=== PATIENT | female | born 1990 | race Caucasian/White ===

== ENCOUNTER 2019-05-07 13:55 | Outpatient (REF) | payer BC, SELFPAY ==
--- NOTE | 2019-05-07 13:30 | PAPFT_PTH ---
PATIENT: Aditya Velez LOC: [facility] U#:[id number] AGE/SX: 28/F ROOM: RE05/07/[address]: Sue Dorsey : 1990 BED: DIS: 05/07/2019 SPEC #: [id number] RECD: 05/10/19 13:01 STATUS: GABBY RETammy #: [id number] SCOTT: 05/07/19 13:[address]: Sue Dorsey DEPT: [facility] Cytology RECD BY: Mili Duncan ENTERED: 05/10/19 13:01 SP TYPE: PAPFT OTHR DR: Basim Garcia Tissues: 1 - CX/ENDOCX FOR PAP SMEARS Procedures: PAP THIN PREP/[facility] Screening HPV DNA PROBE Comments: [id number] (CHLAMYDIA/GC)
[2019-05-10 10:52] LABS: HIV-1/2 Ag & Ab Screen Negative (NEGAT)
[2019-05-10 12:03] LABS: Syphilis Serology (RPR) Negative (Negative)
[2019-05-11 15:06] LABS: Chlamydia Result Negative; GC Result Negative; Specimen Description SEE COMMENTS
== END 2019-05-07 14:15 ==
LOC: NCHCN 13:55
PROVIDERS: PCP Specialist/Technologist Athletic Trainer; Visit Provider Nurse Practitioner Family
DX: Z00.00 Encounter for general adult medical examination without abnormal findings (principal); F32.9 Major depressive disorder, single episode, unspecified; R87.89 Other abnormal findings in specimens from female genital organs; Z11.3 Encounter for screening for infections with a predominantly sexual mode of transmission; Z11.4 Encounter for screening for human immunodeficiency virus [HIV]; Z12.4 Encounter for screening for malignant neoplasm of cervix; Z11.51 Encounter for screening for human papillomavirus (HPV); Z01.419 Encounter for gynecological examination (general) (routine) without abnormal findings
CPT/HCPCS: 87389; 87491; 87591; 88142; 86592; 87624

== ENCOUNTER 2019-11-25 11:51 | Outpatient (REF) | payer BC, SELFPAY | END 2019-11-25 12:11 | LOC: NCHCN 11:51 | PROVIDERS: PCP Specialist/Technologist Athletic Trainer; Visit Provider Nurse Practitioner Family | DX: N76.0 Acute vaginitis (principal) | CPT/HCPCS: 87480; 87510; 87660 ==

== ENCOUNTER 2020-02-23 14:54 | Outpatient (REF) | payer BC, SELFPAY ==
[2020-02-23 20:15] LABS: ALT 20 U/L (14-59); AST 17 U/L (15-37); Albumin 3.9 g/dL (3.4-5.0); Alkaline Phosphatase 55 U/L (46-116); Anion Gap 9.8 mmol/L (3-11); BUN 13 mg/dL (7-18); Bilirubin, Total 0.6 mg/dL (0.2-1.0); CO2 26.2 mmol/L (21.0-32.0); CREATININE 1.25 mg/dL (0.55-1.02); Calcium 8.9 mg/dL (8.5-10.1); Chloride 105 mmol/L (98-107); Estimated GFR 51.03 (mL/min/1.73m2); Glucose 75 mg/dL (74-106); Potassium 4.5 mmol/L (3.5-5.1); Sodium 141 mmol/L (136-145); Total Protein 7.1 g/dL (6.4-8.2)
[2020-02-23 20:16] LABS: Abs Immature Grans 0.01 k/cumm (0.0-0.09); Absolute Basophil Count 0.04 k/cumm (0.0-0.2); Absolute Eosinophil Count 0.07 k/cumm (0.0-0.7); Absolute Lymphocyte Count 2.28 k/cumm (1.2-3.4); Absolute Monocyte Count 0.71 k/cumm (0.11-0.7); Absolute Neutrophil Count 5.38 k/cumm (1.2-6.7); Basophils % 0.5; Eosinophils % 0.8; HCT 39.1 % (36.0-46.0); HGB 13.6 g/dL (12.0-15.5); Immature Grans % 0.1 %; Lymphocytes % 26.9; Mean Corp. HGB Concentration 34.8 g/dL (32.0-36.0); Mean Corpuscular Hemoglobin 31.3 pg (27.0-33.0); Mean Corpuscular Volume 90.1 fL (80-95); Mean Platelet Volume 10.2 fL (8.0-11.0); Monocytes % 8.4; Neutrophils % 63.3; Platelet Count 277 x1000/uL (130-400); RBC 4.34 m/cumm (4.00-5.20); RBC Distribution Width 11.4 % (11.7-14.6); White Blood Cell Count 8.49 k/cumm (4.4-10.8)
[2020-02-23 21:42] LABS: ESR 10 mm/hr (0-20)
== END 2020-02-23 15:14 ==
LOC: NCHCN 14:54
PROVIDERS: PCP Specialist/Technologist Athletic Trainer; Visit Provider Nurse Practitioner Family
DX: Z00.00 Encounter for general adult medical examination without abnormal findings (principal); K62.5 Hemorrhage of anus and rectum; R10.31 Right lower quadrant pain
CPT/HCPCS: 80053; 85652; 85025

== ENCOUNTER 2020-02-28 01:46 | Outpatient (CLI) | payer BC, SELFPAY ==
--- NOTE | 2020-02-28 | DI.US_ITS ---
EXAM: US PELVIS US PELVISty CLINICAL HISTORY: RENAL IMPAIRMENT, N28.9, RLQ PAIN, R10.31, ABD PAIN. TECHNIQUE: Transabdominal imaging was performed using standard protocol. COMPARISON: No exams were available for comparison FINDINGS: KIDNEYS: Kidneys are symmetric in size. No evidence of renal calculi. No evidence of hydronephrosis. No renal mass or cyst identified. UTERUS: Anteverted. The uterus measures 8.5 x 4.5 x 6.2 cm. Endometrium: 10 millimeters Myometrium: Unremarkable. Cervix: Unremarkable. OVARIES: Right: Cyst or mass: None. Left: Cyst or mass: None. The visualization of the left ovary was somewhat limited due to adjacent b owel. DOPPLER: Color: Symmetric and uniform flow to both ovaries. No hyperemia. CUL-DE-SAC: Free fluid: Small amount of free fluid, likely physiologic. IMPRESSION: 1. Normal-appearing uterus with endometrial stripe within normal limits. 2. Unremarkable bilateral ovaries. DATA REPOSITORY:
--- NOTE | 2020-02-28 | DI.US_ITS ---
TECHNIQUE: Ultrasound abdomen performed using standard protocol. COMPARISON: No exams were available for comparison FINDINGS: LIVER: Normal size and echogenicity. No focal liver lesions are seen.. GALLBLADDER: No evidence of cholelithiasis. No evidence of wall thickening. No pericholecystic fluid identified. KIDNEYS: Kidneys are symmetric in size and show normal parenchymal echogenicity. No evidence of cecilio l calculi. No evidence of hydronephrosis. No renal mass or cyst identified. The prevoid bladder volu me measured 150 cc. Both ureteral jets were visualized. Postvoid residual is 0 cc. No bladder mass is seen. BILIARY SYSTEM: No intrahepatic or extrahepatic biliary ductal dilation. VELASCO'S SIGN: Negative. PANCREAS: Normal where visualized. SPLEEN: Not enlarged. ABDOMINAL AORTA AND IVC: Visualized portions normal caliber. ASCITES: None seen. IMPRESSION: Normal sonographic appearance of the upper abdomen. DATA REPOSITORY:
== END 2020-02-28 02:06 ==
PROVIDERS: PCP Nurse Practitioner Family; Visit Provider Nurse Practitioner Family
DX: R10.31 Right lower quadrant pain (principal); N28.89 Other specified disorders of kidney and ureter
CPT/HCPCS: 76770; 76700; 76856

== ENCOUNTER 2021-02-13 15:04 | Outpatient (REF) | payer BC, SELFPAY ==
[2021-02-13 21:18] LABS: Abs Immature Grans 0.01 10^3/uL (0.0-0.06); Absolute Basophil Count 0.05 10^3/uL (0.0-0.2); Absolute Eosinophil Count 0.07 10^3/uL (0.0-0.7); Absolute Lymphocyte Count 2.09 10^3/uL (1.2-3.4); Absolute Neutrophil Count 4.66 10^3/uL (1.2-6.7); Basophils % 0.7; Eosinophils % 0.9; HCT 41.7 % (36.0-46.0); HGB 14.7 g/dL (11.2-15.7); Immature Grans % 0.1; Lymphocytes % 27.9; MCH 31.3 pg (27.0-33.0); MCHC 35.3 % (32.0-36.0); MCV 88.7 fL (80-95); MPV 10.9 fL (8.0-11.0); Neutrophils % 62.4; Nucleated RBC 0 %; Platelet Count 242 10^3/uL (130-400); RDW 11.4 % (11.7-14.6); RDW-SD 37.1 fL; WBC 7.48 10^3/uL (4.4-10.8)
[2021-02-13 21:32] LABS: ESR 7 mm//hr (0-20)
[2021-02-13 21:35] LABS: Iron 92 ug/dL (50-170); Total Iron Binding Capacity 301 ug/dL (250-450); Transferrin Sat 31 % (15-50)
[2021-02-13 21:49] LABS: Anion Gap 7.6 mmol/L (3-11); BUN 12 mg/dL (7-18); CO2 29.4 mmol/L (21.0-32.0); CREATININE 1.2 mg/dL (0.55-1.02); Calcium 8.9 mg/dL (8.5-10.1); Chloride 104 mmol/L (98-107); Estimated GFR 53.11 (mL/min/1.73m2); Glucose 75 mg/dL (74-106); Magnesium 2.1 mg/dL (1.8-2.4); Sodium 141 mmol/L (136-145); TSH (W/Ref FT4) 0.47 uIU/mL (0.36-3.74); Vitamin B12 456 pg/mL (193-986)
== END 2021-02-13 15:05 | disposition home or self-care (01) ==
LOC: NCHCN 15:04
PROVIDERS: PCP Nurse Practitioner Family; Visit Provider Nurse Practitioner Family
DX: R00.2 Palpitations (principal); R20.2 Paresthesia of skin; R42 Dizziness and giddiness; R51.9 Headache, unspecified; H53.8 Other visual disturbances
CPT/HCPCS: 80048; 85652; 82607; 83540; 83550; 83735; 84443; 85025

== ENCOUNTER 2021-05-17 04:34 | Outpatient (CLI) | payer BC, SELFPAY ==
--- NOTE | 2021-05-17 16:19 | PDOC.EEG_ITS ---
Neurology EEG EEG: [facility] Department of Neurology EEG REPORT Date of Recordin05/17/21 Interpreting Physician: Dr. Kavitha Mendoza PCP/Referring Provider: Loreta Dorsey NP Reason for study: Aditya is a 30 year-old woman with recurrent brief spells of vision loss and vertigo followed by more prolonged fatigue, concerning for seizure. Current Medications: Home Medications Medication Instructions Recorded Confirmed Type Mulit For Her [place] 3 PO DAILY 04/17/18 05/07/21 History Proair Hfa 108 1 - 2 puff INHALATION 4-6hrs 04/17/18 05/07/21 History fluticasone propionate 50 mcg NS DAILY spray 04/17/18 05/07/21 History loratadine 10 mg tablet 10 mg PO DAILY 05/07/21 05/07/21 History montelukast 10 mg tablet 10 mg PO DAILY 05/07/21 05/07/21 History METHODS: A 21 channel digitized electroencephalogram was performed in the [facility]. The 10/20 international system of electrode placement was used and bipolar and referential electrode montages were recorded. In addition to EEG the patient was monitored for EKG and lateral/vertical eye movements. Activation procedures of photic stimulation and hyperventilation were performed if applicable. Video was used during activation procedures and during events where applicable. The duration of the recording was 30 minutes. DESCRIPTION OF EEG: The patient was noted to be awake and drowsy during the recording. During maximal wakefulness a 9-Hz posterior background rhythm was present which was well-modulated, symmetrical, reactive to eye opening, and of moderate voltage. With eye opening the background activity changed to a low voltage mixture of alpha, beta, and occasional theta range frequencies. Faster frequencies were present in the bilateral anterior head regions. There was a normal anterior- posterior voltage gradient. During drowsiness, there was attenuation of the posterior dominant background rhythm and vertex waves. No stage II sleep was recorded. Activating Procedures: Photic stimulation was performed which produced no posterior driving. Hyperventilation was performed with moderate effort and produced no physiological slowing of the background. EKG: EKG revealed normal sinus rhythm. INTERPRETATION: This EEG is normal during the awake and drowsy states as well as during photic stimulation and hyperventilation. PRIOR EEG: none CLINICAL CORRELATION: No focal regions of cerebral dysfunction or epileptiform activity was present. Epilepsy remains a clinical diagnosis and a normal EEG does not rule out epilepsy. Clinical correlation is advised. Kavitha Mendoza MD
== END 2021-05-17 04:35 | disposition home or self-care (01) ==
LOC: RT 04:34
PROVIDERS: PCP Nurse Practitioner Family; Visit Provider Psychiatry & Neurology Neurology
DX: R41.89 Other symptoms and signs involving cognitive functions and awareness (principal); R42 Dizziness and giddiness; R53.83 Other fatigue; H53.19 Other subjective visual disturbances
CPT/HCPCS: 95816

== ENCOUNTER 2022-09-18 10:24 | Outpatient (REF) | payer BC, SELFPAY ==
--- NOTE | 2022-09-18 09:30 | PAPFT_PTH ---
PATIENT: Aditya Velez LOC: [facility] U#:[id number] AGE/SX: 31/F ROOM: RE09/18/[address]: Ivelisse Thompson MD : 1990 BED: DIS: 09/18/2022 SPEC #: [id number] RECD: 09/18/22 12:48 STATUS: GABBY RETammy #: [id number] SCOTT: 09/18/22 09:[address]: Ivelsise Thompson [facility] Cytology RECD BY: Mili Duncan ENTERED: 09/18/22 12:48 SP TYPE: PAPFT OTHR DR: Sue Dorsey Tissues: 1 - CX/ENDOCX FOR PAP SMEARS Procedures: PAP THIN PREP/[facility] Screening HPV DNA PROBE Comments: [id number] (CHLAMYDIA/GC) (HPV 16 & 18/45)
[2022-09-19 14:47] LABS: Chlamydia Result Negative (Negative); GC Result Negative (Negative)
== END 2022-09-18 10:25 | disposition home or self-care (01) ==
LOC: LBN 10:24
PROVIDERS: PCP Nurse Practitioner Family; Visit Provider Obstetrics & Gynecology
DX: Z12.4 Encounter for screening for malignant neoplasm of cervix (principal); Z11.3 Encounter for screening for infections with a predominantly sexual mode of transmission; Z11.51 Encounter for screening for human papillomavirus (HPV); R87.810 Cervical high risk human papillomavirus (HPV) DNA test positive
CPT/HCPCS: 87491; 87591; 88142; 87624

== ENCOUNTER 2022-10-16 12:47 | Outpatient (REF) | payer BC, SELFPAY ==
--- NOTE | 2022-10-16 10:00 | CER_PTH ---
PATIENT: Aditya Velez LOC: [facility] U#:[id number] AGE/SX: 31/F ROOM: RE10/16/[address]: Ivelisse Thompson MD : 1990 BED: DIS: 10/16/2022 SPEC #: [id number] RECD: 10/16/22 12:50 STATUS: GABBY REQ #: [id number] SCOTT: 10/16/22 10:[address]: Ivelisse Thompson DEPT: Surgical Specimen RECD BY: Mili Duncan ENTERED: 10/16/22 12:51 SP TYPE: CER OTHR DR: Sue Dorsey Tissues: 1 - CERVICAL BIOPSY Procedures: GROSS AND MICRO LEVEL 4 Comments: [id number]
== END 2022-10-16 12:48 | disposition home or self-care (01) ==
LOC: LBN 12:47
PROVIDERS: PCP Nurse Practitioner Family; Visit Provider Obstetrics & Gynecology
DX: N87.0 Mild cervical dysplasia (principal)
CPT/HCPCS: 88305

== ENCOUNTER 2023-01-13 14:31 | Outpatient (REF) | payer BC, SELFPAY ==
[2023-01-13 20:53] LABS: Abs Immature Grans 0.01 10^3/uL (0.0-0.06); Absolute Basophil Count 0.06 10^3/uL (0.0-0.2); Absolute Eosinophil Count 0.07 10^3/uL (0.0-0.7); Absolute Lymphocyte Count 1.92 10^3/uL (1.2-3.4); Absolute Monocyte Count 0.48 10^3/uL (0.1-0.8); Absolute Neutrophil Count 4.77 10^3/uL (1.2-6.7); Basophils % 0.8; HCT 40.5 % (36.0-46.0); HGB 13.9 g/dL (11.2-15.7); Immature Grans % 0.1; Lymphocytes % 26.3; MCH 30.5 pg (27.0-33.0); MCHC 34.3 % (32.0-36.0); MCV 89 fL (80-95); Monocytes % 6.6; Neutrophils % 65.2; Platelet Count 255 10^3/uL (130-400); RBC 4.55 10^6/uL (3.93-5.22); RDW 11.2 % (11.7-14.6); RDW-SD 36.6 fL; WBC 7.31 10^3/uL (4.4-10.8)
[2023-01-13 20:58] LABS: ESR 3 mm/hr (0-20)
[2023-01-13 21:03] LABS: ALT 34 U/L (14-59); AST 20 U/L (15-37); Alkaline Phosphatase 63 U/L (46-116); Anion Gap 7.8 mmol/L (3-11); BUN 10 mg/dL (7-18); Bilirubin, Total 0.4 mg/dL (0.2-1.0); CO2 28.2 mmol/L (21.0-32.0); CREATININE 0.8 mg/dL (0.55-1.02); Chloride 106 mmol/L (98-107); Estimated GFR 100.96 (mL/min/1.73m2); Glucose 78 mg/dL (74-106); Potassium 3.9 mmol/L (3.5-5.1); Sodium 142 mmol/L (136-145)
[2023-01-14 17:52] LABS: Rheumatoid Factor 29.7 IU/mL (<12.0)
[2023-01-15 10:11] LABS: Lyme Ab w Rflx to Lyme Confirm Negative (Negative)
[2023-01-16 14:25] LABS: Anaplasma phagocytophilum Negative (Negative); B. miyamotoi PCR Negative (Negative); Babesia divergens/MO-1 Negative (Negative); Babesia duncani Negative (Negative); Babesia microti Negative (Negative); Ehrlichia chaffeensis Negative (Negative); Ehrlichia ewingii/canis Negative (Negative); Ehrlichia muris eauclairensis Negative (Negative)
== END 2023-01-13 14:32 | disposition home or self-care (01) ==
LOC: NCHCN 14:31
PROVIDERS: PCP Nurse Practitioner Family; Visit Provider Family Medicine
DX: R53.83 Other fatigue (principal); M25.50 Pain in unspecified joint
CPT/HCPCS: 80053; 85652; 87798; 85025; 86431; 86618

== ENCOUNTER 2024-01-19 14:17 | Outpatient (REF) | payer BC, SELFPAY ==
[2024-01-20 09:51] LABS: HIV-1/2 Ag & Ab Screen Negative (Negative)
[2024-01-20 10:10] LABS: Hepatitis C Ab w Rflx HCV PCR Negative (Negative)
[2024-01-20 11:25] LABS: Syphilis Serology (RPR) Negative (Negative)
== END 2024-01-19 14:18 | disposition home or self-care (01) ==
LOC: NCHCN 14:17
PROVIDERS: PCP Nurse Practitioner Family; Visit Provider Nurse Practitioner Family
DX: Z00.00 Encounter for general adult medical examination without abnormal findings (principal); Z11.3 Encounter for screening for infections with a predominantly sexual mode of transmission; Z11.4 Encounter for screening for human immunodeficiency virus [HIV]; Z11.59 Encounter for screening for other viral diseases
CPT/HCPCS: 86803; 87389; 86592

== ENCOUNTER 2024-01-29 15:31 | Outpatient (REF) | payer BC, SELFPAY ==
--- NOTE | 2024-01-29 15:15 | PAPFT_PTH ---
PATIENT: Aditya Velez LOC: [facility] U#:[id number] AGE/SX: 33/F ROOM: RE01/29/[address]: Ivelisse Thompson MD : 1990 BED: DIS: 01/29/2024 SPEC #: [id number] RECD: 01/29/24 17:51 STATUS: GABBY REQ #: [id number] SCOTT: 01/29/24 15:[address]: Ivelisse Thompson DEPT: [facility] Cytology RECD BY: Mili Duncan ENTERED: 01/29/24 17:51 SP TYPE: PAPFT PALMER DR: Sue Dosrey Tissues: 1 - CX/ENDOCX FOR PAP SMEARS Procedures: PAP THIN PREP/[facility] Screening HPV DNA PROBE Comments: [id number] (CHLAMYDIA/GC)
[2024-01-30 13:15] LABS: Chlamydia Result Negative (Negative); GC Result Negative (Negative)
== END 2024-01-29 15:32 | disposition home or self-care (01) ==
LOC: LBN 15:31
PROVIDERS: PCP Nurse Practitioner Family; Visit Provider Obstetrics & Gynecology
DX: Z01.419 Encounter for gynecological examination (general) (routine) without abnormal findings (principal)
CPT/HCPCS: 87491; 87591; 88142; 87624

== ENCOUNTER 2025-02-01 18:02 | Outpatient (REF) | payer BC, SELFPAY ==
--- NOTE | 2025-02-01 16:15 | PAPFT_PTH ---
PATIENT: Aditya Velez LOC: [facility] U#:[id number] AGE/SX: 34/F ROOM: RE02/01/[address]: Ivelisse Thompson MD : 1990 BED: DIS: 02/01/2025 SPEC #: [id number] RECD: 02/01/25 18:13 STATUS: TDSherrie REQ #: [id number] SCOTT: 02/01/25 16:[address]: Ivelisse Thomspon DEPT: [facility] Cytology RECD BY: Mili Duncan ENTERED: 02/01/25 18:13 SP TYPE: PAPFT PALMER DR: Sue Dorsey Tissues: 1 - CX/ENDOCX FOR PAP SMEARS Procedures: PAP THIN PREP/[facility] Screening HPV DNA PROBE Comments: [id number] (HPV 16 & 18/45)
== END 2025-02-01 18:03 | disposition home or self-care (01) ==
LOC: LBN 18:02
PROVIDERS: PCP Nurse Practitioner Family; Visit Provider Obstetrics & Gynecology
DX: Z12.4 Encounter for screening for malignant neoplasm of cervix (principal); Z01.419 Encounter for gynecological examination (general) (routine) without abnormal findings
CPT/HCPCS: 88142; 87624

== ENCOUNTER 2025-03-15 13:10 | Outpatient (REF) | payer BC, SELFPAY ==
[2025-03-15 16:05] LABS: Iron 114 ug/dL (50-170); Total Iron Binding Capacity 356 ug/dL (250-450); Transferrin Sat 32 % (15-50)
[2025-03-15 16:17] LABS: ALT 43 U/L (14-59); AST 77 U/L (15-37); Albumin 4.1 g/dL (3.4-5.0); Alkaline Phosphatase 62 U/L (46-116); Anion Gap 9.7 mmol/L (3-11); BUN 9 mg/dL (7-18); Bilirubin, Total 0.8 mg/dL (0.2-1.0); CO2 27.3 mmol/L (21.0-32.0); CREATININE 0.7 mg/dL (0.55-1.02); Calcium 9.1 mg/dL (8.5-10.1); Chloride 104 mmol/L (98-107); Estimated GFR 117.04 (mL/min/1.73m2); Ferritin 22 ng/mL (8-252); Glucose 75 mg/dL (74-106); Potassium 4.2 mmol/L (3.5-5.1); Sodium 141 mmol/L (136-145); TSH (W/Ref FT4) 1.42 uIU/mL (0.36-3.74); Total Protein 7.2 g/dL (6.4-8.2); Vitamin B12 453 pg/mL (193-986)
[2025-03-16 10:45] LABS: Lyme Ab w Rflx to Lyme Confirm Negative (Negative)
[2025-03-18 00:14] LABS: Anaplasma phagocytophilum Negative (Negative); B. miyamotoi PCR Negative (Negative); Babesia divergens/MO-1 Negative (Negative); Babesia duncani Negative (Negative); Babesia microti Negative (Negative); Ehrlichia chaffeensis Negative (Negative); Ehrlichia ewingii/canis Negative (Negative); Ehrlichia muris eauclairensis Negative (Negative)
== END 2025-03-15 13:11 | disposition home or self-care (01) ==
LOC: NCHCN 13:10
PROVIDERS: PCP Nurse Practitioner Family; Visit Provider Nurse Practitioner Family
DX: R61 Generalized hyperhidrosis (principal); R53.83 Other fatigue
CPT/HCPCS: 80053; 87798; 82607; 82728; 83540; 83550; 84443; 86618

== ENCOUNTER 2025-03-30 03:33 | Outpatient (CLI) | payer BC, SELFPAY ==
[2025-03-30 13:08] LABS: HCT 38.7 % (36.0-46.0); HGB 13.4 g/dL (11.2-15.7); MCH 30.7 pg (27.0-33.0); MCHC 34.6 % (32.0-36.0); MCV 89 fL (80-95); Platelet Count 252 10^3/uL (130-400); RBC 4.37 10^6/uL (3.93-5.22); RDW 11.6 % (11.7-14.6); RDW-SD 37.1 fL; WBC 7.55 10^3/uL (4.4-10.8)
[2025-03-30 13:58] LABS: TSH (W/Ref FT4) 0.59 uIU/mL (0.36-3.74)
== END 2025-03-30 03:34 | disposition home or self-care (01) ==
LOC: LBO 03:33
PROVIDERS: PCP Nurse Practitioner Family; Visit Provider Obstetrics & Gynecology
DX: N92.0 Excessive and frequent menstruation with regular cycle (principal)
CPT/HCPCS: 36415; 85027; 84443

== ENCOUNTER 2025-08-02 16:53 | Outpatient (REF) | payer BC, SELFPAY ==
[2025-08-02 21:12] LABS: ALT 18 U/L (14-59); AST 15 U/L (15-37); Albumin 4.0 g/dL (3.4-5.0); Alkaline Phosphatase 54 U/L (46-116); Bilirubin, Total 0.7 mg/dL (0.2-1.0); Total Protein 6.8 g/dL (6.4-8.2)
[2025-08-02 21:25] LABS: Bilirubin, Direct 0.2 mg/dL (0.0-0.2)
== END 2025-08-02 16:54 | disposition home or self-care (01) ==
LOC: NCHCN 16:53
PROVIDERS: PCP Nurse Practitioner Family; Visit Provider Nurse Practitioner Family
DX: R74.01 Elevation of levels of liver transaminase levels (principal)
CPT/HCPCS: 80076